=== PATIENT | female | born 1995 | race Caucasian/White ===

== ENCOUNTER 2019-02-16 05:36 | Inpatient (IN) ==
[2019-02-05 11:49] LABS: Apearance,Urine Slightly Hazy (Clear); Bilirubin,Urine Negative (Negative); Blood, Urine Negative (Negative); Glucose,Urine (UA) Negative (Negative); Ketones,Urine Negative (Negative); Mucus,Urine Few /LPF (Occasional); Nitrite,Urine Negative (Negative); Protein,Urine Negative; RBC,Urine 1 /HPF (0-4); Squamous Epithelial Cell,Urine Few /HPF (0-10); Urine Color Yellow (Yellow); Urine Specific Gravity 1.023 (1.001-1.035); Urine Urobilinogen < 2.0 EU/DL (0.2-1.0); WBC,Urine 2 /HPF (0-6)
[2019-02-05 11:51] LABS: Basophils % 0.4 % (0.0-0.8); Eosinophils # 0.4 10*3/uL (0.0-0.87); Eosinophils % 3.8 % (0.00-10.9); Hematocrit 44.3 VOL% (35.7-47.0); Immature Granulocytes % 0.7 %; Immature Granulocytes Absolute 0.07 #; Lymphocytes # 2.5 10*3/uL (1.4-4.0); Lymphocytes % 24.4 % (21.3-54.2); Mean Corpuscular HGB Conc 33.9 GM/DL (32-36); Mean Corpuscular Volume 84.7 FL (87-102); Mean Platelet Volume 9.7 FL (9.6-12.0); Monocytes % 6.2 % (1.7-12.7); Neutrophils % 64.5 % (38.7-73.9); Platelet Count 372 T/CUMM (130-400); Red Blood Count 5.23 MC/CUMM (3.8-5.5); Red Cell Distribution Width 12.9 % (9.3-17.3); White Blood Count 10.4 T/CUMM (4-12)
[2019-02-05 12:04] LABS: Calcium 9.6 MG/DL (8.5-10.1); Osmolality,Calculated 283.8 MOS/KG (273-304)
[2019-02-05 12:30] LABS: PT Patient Result 10.5 SECS (9.6-12.2); Partial Thromboplastin Time 29.9 SECS (20.8-36.0)
[2019-02-16] MEDS ORDERED: ceFAZolin 1,000 MG in SYRINGE 1 EACH IV ONE (06:00)
[2019-02-16] MEDS ORDERED: ceFAZolin 1,000 MG VIAL ONE (06:18)
[2019-02-16] MEDS ORDERED: SCOPOLAMINE 1.5 MG PATCH TRANSDERM ONE ×2 (06:22→06:25)
[2019-02-16] MEDS ORDERED: FAMOTIDINE 20 MG TABLET PO ONE (06:25)
[2019-02-16] MEDS ORDERED: DIAZEPAM 5 MG TABLET PO ONE (06:25)
[2019-02-16] MEDS: LACTATED RINGERS 1,000 ML IV SCH ×4 (06:30→19:26)
[2019-02-16] MEDS ORDERED: DIAZEPAM 5 MG TABLET ONE (06:41)
[2019-02-16] MEDS ORDERED: FAMOTIDINE 20 MG TABLET ONE (06:41)
[2019-02-16] MEDS ORDERED: ONDANSETRON 4 MG/2 ML VIAL ONE ×2 (08:30→08:32)
[2019-02-16] MEDS ORDERED: LIDOCAINE 2% 5 ML VIAL ONE (08:30)
[2019-02-16] MEDS ORDERED: SEVOFLURANE 1 UNIT/15 MINUTE INH ONE (08:30)
[2019-02-16] MEDS ORDERED: DEXAMETHASONE 4 MG/1 ML VIAL ONE (08:30)
[2019-02-16] MEDS ORDERED: PROPOFOL 200 MG/20 ML VIAL IV ONE (08:30)
[2019-02-16] MEDS ORDERED: SUFentanil 50 MCG/ML AMP ONE (08:30)
[2019-02-16] MEDS ORDERED: KETOROLAC 30 MG/1 ML VIAL ONE (08:30)
[2019-02-16] MEDS ORDERED: GLYCOPYRROLATE 0.4 MG/2 ML VIAL ONE (08:31)
[2019-02-16] MEDS ORDERED: NEOSTIGMINE 10 MG/10 ML VIAL ONE (08:31)
[2019-02-16] MEDS ORDERED: ROCURONIUM 100 MG/10 ML VIAL IV ONE (08:31)
[2019-02-16] MEDS ORDERED: ACETAMINOPHEN 1,000 MG/100 ML VIAL IV ONE (08:31)
[2019-02-16] MEDS ORDERED: LACTATED RINGERS 1,000 ML IV ONE (08:31)
[2019-02-16] MEDS ORDERED: PHENYLEPHRINE 1 MG/10 ML SYRINGE IV ONE (08:31)
[2019-02-16 08:32] LABS: Apearance,Urine CLEAR (Clear); Bacteria,Urine Occasional /HPF (Few); Bilirubin,Urine Negative (Negative); Blood, Urine Negative (Negative); Glucose,Urine (UA) Negative (Negative); Ketones,Urine Negative (Negative); Mucus,Urine Occasional /LPF (Occasional); Nitrite,Urine Negative (Negative); Protein,Urine Negative; RBC,Urine 1 /HPF (0-4); Squamous Epithelial Cell,Urine Occasional /HPF (0-10); Urine Color Yellow (Yellow); Urine Specific Gravity 1.019 (1.001-1.035); Urine Urobilinogen < 2.0 EU/DL (0.2-1.0)
[2019-02-16] MEDS ORDERED: HYDROmorphone 2 MG/1 ML VIAL ONE (08:32)
[2019-02-16] MEDS: HYDROmorphone 2 MG/1 ML VIAL IV PRN ×4 (08:33→09:41)
[2019-02-16] MEDS ORDERED: ONDANSETRON 4 MG/2 ML VIAL IV PRN (08:34)
[2019-02-16] MEDS ORDERED: diphenhydrAMINE 50 MG/1 ML VIAL IV PRN (10:43)
[2019-02-16] MEDS ORDERED: INFLUENZA VIRUS VACCINE 0.5 ML SYRINGE IM ONE (11:23)
[2019-02-16] MEDS ORDERED: IBUPROFEN 800 MG TABLET ONE (11:50)
[2019-02-16] MEDS: IBUPROFEN 800 MG TABLET PO PRN (11:53)
[2019-02-16] MEDS: oxyCODONE/ACETAMINOPHEN 5-325 MG TABLET PO PRN ×3 (11:54→23:07)
[2019-02-16] MEDS ORDERED: SODIUM CHLORIDE 0.9% 100 ML IV ONE (15:22)
[2019-02-16] MEDS: ceFAZolin 1,000 MG in SYRINGE 1 EACH IV SCH (15:58)
[2019-02-17] MEDS: ceFAZolin 1,000 MG in SYRINGE 1 EACH IV SCH (00:18)
[2019-02-17] MEDS: LACTATED RINGERS 1,000 ML IV SCH (05:01)
[2019-02-17 05:50] LABS: Basophils % 0.2 % (0.0-0.8); Eosinophils % 0.1 % (0.00-10.9); Hematocrit 39.1 VOL% (35.7-47.0); Hemoglobin 12.9 GM/DL (12.0-16.0); Immature Granulocytes % 1.2 %; Immature Granulocytes Absolute 0.15 #; Lymphocytes # 2.1 10*3/uL (1.4-4.0); Lymphocytes % 16.1 % (21.3-54.2); Mean Corpuscular Volume 86.3 FL (87-102); Mean Platelet Volume 10.1 FL (9.6-12.0); Monocytes % 8.3 % (1.7-12.7); Neutrophils % 74.1 % (38.7-73.9); Platelet Count 285 T/CUMM (130-400); Red Blood Count 4.53 MC/CUMM (3.8-5.5); Red Cell Distribution Width 13.4 % (9.3-17.3); White Blood Count 12.8 T/CUMM (4-12)
[2019-02-17] MEDS: IBUPROFEN 800 MG TABLET PO PRN ×3 (07:39→19:58)
[2019-02-17] MEDS: oxyCODONE/ACETAMINOPHEN 5-325 MG TABLET PO PRN ×3 (07:47→19:58)
[2019-02-17] MEDS: DOCUSATE SODIUM 100 MG CAPSULE PO SCH ×2 (09:22→19:57)
[2019-02-17] MEDS: SIMETHICONE CHEW 80 MG TABLET PO PRN (09:22)
[2019-02-17] MEDS: MAGNESIUM HYDROXIDE SUSP 30 ML UDCUP PO PRN ×2 (09:22→19:57)
[2019-02-18] MEDS: DOCUSATE SODIUM 100 MG CAPSULE PO SCH ×2 (01:21→11:42)
[2019-02-18] MEDS: SIMETHICONE CHEW 80 MG TABLET PO PRN (04:14)
[2019-02-18] MEDS: oxyCODONE/ACETAMINOPHEN 5-325 MG TABLET PO PRN ×2 (05:09→11:41)
[2019-02-18] MEDS: IBUPROFEN 800 MG TABLET PO PRN ×2 (05:09→11:42)
[2019-02-18] MEDS ORDERED: BISACODYL 10 MG SUPP RECTAL PRN (05:46)
[2019-02-18 07:25] VITALS: BP 127/75
== END 2019-02-18 12:50 | disposition home or self-care (01) | DRG 743 ==
LOC: N.SDSINP 05:36 → N.OB 09:15
PROVIDERS: ADMIT Specialist; ATTEND Specialist